=== PATIENT | female | born 1985 | race Hispanic/Latino ===

== ENCOUNTER 2021-03-26 11:30 | Emergency (ER) | payer MEDICAID, SELFPAY ==
[2021-03-26] MEDS ORDERED: Ibuprofen 200 MG TAB ONE (12:20)
== END 2021-03-26 12:12 | disposition home or self-care (01) ==
LOC: CSHERS 11:30
DX: H60.91 Unspecified otitis externa, right ear (principal)
CPT/HCPCS: 99282

== ENCOUNTER 2022-08-09 01:12 | Emergency (ER) | payer MEDICAID, SELFPAY ==
[2022-08-09] MEDS ORDERED: Ibuprofen 200 MG TAB ONE (02:09)
[2022-08-09] MEDS ORDERED: hydrOXYzine Pamoate 25 mg Capsule ONE (02:10)
[2022-08-09 02:31] LABS: #Basophils 0.1 10x3/uL (0.0-0.2); #Eosinphils 0.6 10x3/uL (0.0-0.5); #Monocytes 0.8 10x3/uL (0.0-1.1); #Neutrophils 9.9 10x3/uL (1.5-8.4); %Basophils 0.8 % (0.0-2.0); %Eosinophils 4.7 % (0.0-6.0); %Lymphocytes 15.2 % (18.0-47.0); %Monocytes 5.8 % (0.0-10.0); %Neutrophils 73.2 % (40.0-75.0); Hemoglobin 13.3 g/dL (12.0-15.5); Mean Corpuscular Hemoglobin 29.8 pg (27.0-33.0); Mean Platelet Volume 9.3 fl (7.4-10.4); Platelet Count 382 10x3/uL (150-450); RBC Distribution Width 11.9 % (11.5-14.5); Red Blood Cell (RBC) Count 4.47 10x6/uL (3.90-5.03); White Blood Cell (WBC) Count 13.6 10x3/uL (3.5-10.5)
[2022-08-09 02:43] LABS: ALT (SGPT) 104 U/L (8-55); AST (SGOT) 51 U/L (5-34); Albumin 4.3 g/dL (3.5-5.0); Alkaline Phosphatase 127 U/L (40-110); Anion Gap 13 mmol/L (10-20); BUN (Urea Nitrogen) 11 mg/dL (7.0-18.7); Bilirubin, Total 0.5 mg/dL (0.2-1.2); Calc. Creatinine Clearance 0 mL/min (70-130); Calcium 9.3 mg/dL (7.8-10.44); Carbon Dioxide 23 mmol/L (22-29); Chloride 104 mmol/L (98-107); Estimated GFR 103; Globulin 3.6 g/dL (2.4-3.5); Glucose 106 mg/dL (70-105); Lipase 27 U/L (8-78); Protein, Total 7.9 g/dL (6.0-8.3); Sodium 136 mmol/L (136-145)
== END 2022-08-09 04:56 | disposition home or self-care (01) ==
LOC: CSHERS 01:12
DX: J69.0 Pneumonitis due to inhalation of food and vomit (principal)
CPT/HCPCS: 71045; 71275; 80053; 83690; 84484; 85025; 85379; 93005; Q0177

== ENCOUNTER 2022-08-21 08:21 | Emergency (ER) | payer SELFPAY ==
[2022-08-21 09:21] LABS: #Basophils 0.1 10x3/uL (0.0-0.2); #Eosinphils 0.6 10x3/uL (0.0-0.5); #Monocytes 0.5 10x3/uL (0.0-1.1); %Basophils 1.2 % (0.0-2.0); %Eosinophils 7.1 % (0.0-6.0); %Lymphocytes 33.9 % (18.0-47.0); %Monocytes 5.8 % (0.0-10.0); %Neutrophils 51.7 % (40.0-75.0); Hemoglobin 12.8 g/dL (12.0-15.5); Mean Corpuscular HGB CONC 35.4 g/dL (32.0-36.0); Mean Corpuscular Hemoglobin 29.6 pg (27.0-33.0); Mean Corpuscular Volume 83.6 fl (81.6-98.3); Platelet Count 392 10x3/uL (150-450); RBC Distribution Width 11.7 % (11.5-14.5); Red Blood Cell (RBC) Count 4.33 10x6/uL (3.90-5.03); White Blood Cell (WBC) Count 7.8 10x3/uL (3.5-10.5)
[2022-08-21 09:29] LABS: BHCG - Serum Negative (NEGATIVE); Pregs Control Background? CLEAR/WHITE (CLR/WHITE); Pregs Control Bar Appear? YES (CONTROL BAR)
[2022-08-21 09:37] LABS: ALT (SGPT) 29 U/L (8-55); AST (SGOT) 17 U/L (5-34); Albumin 4.1 g/dL (3.5-5.0); Alkaline Phosphatase 65 U/L (40-110); Anion Gap 15 mmol/L (10-20); BUN (Urea Nitrogen) 10 mg/dL (7.0-18.7); Bilirubin, Total 0.2 mg/dL (0.2-1.2); Calc. Creatinine Clearance 0 mL/min (70-130); Calcium 9.5 mg/dL (7.8-10.44); Carbon Dioxide 23 mmol/L (22-29); Chloride 106 mmol/L (98-107); Estimated GFR 110; Globulin 3.2 g/dL (2.4-3.5); Glucose 101 mg/dL (70-105); Magnesium 1.8 mg/dL (1.6-2.6); Potassium 3.8 mmol/L (3.5-5.1); Protein, Total 7.3 g/dL (6.0-8.3); Sodium 140 mmol/L (136-145)
[2022-08-21 10:15] LABS: Troponin I Less than 0.010 ng/mL (< 0.028)
[2022-08-21] MEDS ORDERED: Ketorolac Tromethamine 30 MG/ML VIAL ONE (10:57)
== END 2022-08-21 11:16 | disposition home or self-care (01) ==
LOC: CSHERS 08:21
DX: R07.9 Chest pain, unspecified (principal)
CPT/HCPCS: 71045; 80053; 83735; 84484; 84703; 85025; 85379; 93005; 96374; J1885

== ENCOUNTER 2023-02-26 20:43 | Emergency (ER) | payer SELFPAY ==
[2023-02-26] MEDS ORDERED: HYDROcodone/Acetaminophen 5/325 mg Tablet ONE (21:27)
== END 2023-02-26 22:33 | disposition home or self-care (01) ==
LOC: CSHERS 20:43
DX: S82.832A Other fracture of upper and lower end of left fibula, initial encounter for closed fracture (principal); X50.1XXA Overexertion from prolonged static or awkward postures, initial encounter

== ENCOUNTER 2023-04-08 10:53 | Emergency (ER) | payer SELFPAY | END 2023-04-08 12:01 | disposition home or self-care (01) | LOC: CSHERS 10:53 | DX: S82.62XD Displaced fracture of lateral malleolus of left fibula, subsequent encounter for closed fracture with routine healing (principal); M25.572 Pain in left ankle and joints of left foot; W18.30XA Fall on same level, unspecified, initial encounter; Y93.89 Activity, other specified ==